=== PATIENT | female | born 1980 | race American Indian/Alaskan Native ===

== ENCOUNTER 2019-09-30 17:36 | Emergency (ER) | payer OTHER ==
[2019-09-30] MEDS ORDERED: ASPIRIN 325 MG TAB PO ONE (17:58)
--- NOTE | 2019-09-30 18:35 | XRay Report ---
CHEST 2 VIEWS INDICATION / CLINICAL INFORMATION: Chest Pain. COMPARISON: 09/22/2019. FINDINGS: SUPPORT DEVICES: None. HEART / MEDIASTINUM: No significant abnormality. LUNGS / PLEURA: No significant pulmonary or pleural abnormality. No pneumothorax. ADDITIONAL FINDINGS: No significant additional findings. IMPRESSION: 1. No acute findings. Signer Name: David Merida MD Signed: 09/30/2019 6:31 PM Workstation Name: [id number]
[2019-09-30 19:25] LABS: Basophils # (Auto) 0.1 K/mm3 (0.0-0.1); Basophils % (Auto) 0.6 % (0.0-1.8); Eosinophils # (Auto) 0.1 K/mm3 (0.0-0.4); Eosinophils % (Auto) 1.2 % (0.0-4.3); Hematocrit 43.6 % (30.3-42.9); Hemoglobin 14.7 gm/dl (10.1-14.3); Lymphocytes # (Auto) 3.5 K/mm3 (1.2-5.4); Lymphocytes % (Auto) 43.4 % (13.4-35.0); Mean Corpuscular HGB Conc 34 % (30-34); Mean Corpuscular Volume 90 fl (79-97); Monocytes # (Auto) 0.8 K/mm3 (0.0-0.8); Monocytes % (Auto) 9.5 % (0.0-7.3); Platelet Count 277 K/mm3 (140-440); Red Blood Count 4.83 M/mm3 (3.65-5.03); Red Cell Distribution Width 14.2 % (13.2-15.2)
[2019-09-30 19:47] LABS: BUN/Creatinine Ratio 16; Blood Urea Nitrogen 21 mg/dL (7-17); Calcium 9.8 mg/dL (8.4-10.2); Hemolysis Index 39
--- NOTE | 2019-09-30 20:09 | Event Note ---
ED Screening Note Date of service: 09/30/19 Time: 20:00 ED Screening Note: 38 y/o -[place] Citizen female presents emergency room for acute chest pressure in the left side neck pain more like pressure. Patient was seen here 09/22/2019 elevated blood pressure. She had followed up with her primary care provider and was placed on blood pressure medication. This initial assessment/diagnostic orders/clinical plan/treatment(s) is/are subject to change based on patients health status, clinical progression and re- assessment by fellow clinical providers in the ED. Further treatment and workup at subsequent clinical providers discretion. Patient/guardian urged not to elope from the ED as their condition may be serious if not clinically assessed and managed. Initial orders include:
[2019-10-01 03:37] VITALS: BP 152/105
--- NOTE | 2019-10-01 07:13 | Emergency Department Report ---
ED Chest Pain HPI - General Chief Complaint: Chest Pain Stated Complaint: BP HIGH PUI?: No Time Seen by Provider: 10/01/19 07:03 Source: patient Mode of arrival: Ambulatory Limitations: No Limitations - History of Present Illness Initial Comments: This is a 38-year-old female who was recently diagnosed with hypertension in the emergency department 9 days ago who presents with left chest and neck pain. She also is concerned that her blood pressure has been elevated ranging from 170 to 180 mmHg systolic blood pressure. She has had intermittent left chest pressure and left neck pain. No previous history of cardiac disease. She denies leg pain. Denies travel. Denies use of oral contraception. She was informed by provider in triage that her kidney function has changed since starting on the medication. She followed up with new PCP who changed initial blood pressure medicine and hydrochlorothiazide to olmesartan hydrochlorothiazide. The chest pressure in the left chest and neck last several seconds to minutes. Not associated with exertion. MD Complaint: chest pain -: Sudden Onset: during rest Pain Location: left chest Pain Radiation: neck Severity scale (0 -10): 0 Quality: pressure Consistency: intermittent, now resolved Improves With: nothing Worsens With: nothing Context: new medications (Recently diagnosed with hypertension in the emergency department.) - Related Data Previous Rx's Medication Instructions Recorded Last Taken Type Ibuprofen [Motrin] 800 mg PO TID PRN #25 tablet 03/02/13 Unknown Rx cefUROXime [Ceftin] 250 mg PO Q12H #20 tablet 03/02/13 Unknown Rx hydroCHLOROthiazide [HCTZ] 25 mg PO QDAY #30 tablet 09/22/19 Unknown Rx amLODIPine 5 mg PO DAILY #30 tab 10/01/19 Unknown Rx Allergies Allergy/AdvReac Type Severity Reaction Status Date / Time No Known Allergies Allergy Verified 03/01/13 23:34 Heart Score - HEART Score History: Slightly suspicious EKG: Normal Age: < 45 Risk factors: 1-2 risk factors Troponin: < normal limit HEART Score: 1 ED Review of Systems ROS: Stated complaint: BP HIGH Other details as noted in HPI Comment: All other systems reviewed and negative Constitutional: denies: fever, malaise ENT: denies: ear pain Respiratory: denies: cough, shortness of breath Cardiovascular: chest pain ED Past Medical Hx - Past Medical History Previous Medical History?: Yes Hx Hypertension: Yes (New diagnosis September 2019) - Surgical History Past Surgical History?: Yes Additional Surgical History: - Social History Smoking Status: Never Smoker Substance Use Type: Alcohol - Medications Home Medications: Home Medications Medication Instructions Recorded Confirmed Last Taken Type Ibuprofen [Motrin] 800 mg PO TID PRN #25 tablet 03/02/13 Unknown Rx cefUROXime [Ceftin] 250 mg PO Q12H #20 tablet 03/02/13 Unknown Rx hydroCHLOROthiazide [HCTZ] 25 mg PO QDAY #30 tablet 09/22/19 Unknown Rx amLODIPine 5 mg PO DAILY #30 tab 10/01/19 Unknown Rx ED Physical Exam - General Limitations: No Limitations General appearance: alert, in no apparent distress - Head Head exam: Present: atraumatic, normocephalic - Eye Eye exam: Present: normal appearance - ENT ENT exam: Present: mucous membranes moist - Neck Neck exam: Present: normal inspection, full ROM - Respiratory Respiratory exam: Present: normal lung sounds bilaterally. Absent: respiratory distress, wheezes, rales, rhonchi - Cardiovascular Cardiovascular Exam: Present: regular rate, normal rhythm, normal heart sounds. Absent: systolic murmur, diastolic murmur, rubs, gallop - GI/Abdominal GI/Abdominal exam: Present: soft, normal bowel sounds. Absent: distended, tenderness, guarding, rebound - Extremities Exam Extremities exam: Present: normal inspection - Neurological Exam Neurological exam: Present: alert, oriented X3 - Psychiatric Psychiatric exam: Present: normal affect, normal mood - Skin Skin exam: Present: warm, dry, intact, normal color. Absent: rash ED Course Vital Signs 09/30/19 10/01/19 17:58 03:35 Temperature 97.9 F Pulse Rate 119 H 78 Respiratory 18 16 Rate Blood Pressure 152/105 Blood Pressure 170/101 [Right] O2 Sat by Pulse 100 100 Oximetry ED Medical Decision Making - Lab Data Result diagrams: 09/30/19 18:26 09/30/19 18:26 Vital Signs - 8 hr 10/01/19 03:35 Pulse Rate 78 Respiratory 16 Rate Blood Pressure 152/105 O2 Sat by Pulse 100 Oximetry Vital Signs - 24 hr 09/30/19 10/01/19 17:58 03:35 Temperature 97.9 F Pulse Rate 119 H 78 Respiratory 18 16 Rate Blood Pressure 152/105 Blood Pressure 170/101 [Right] O2 Sat by Pulse 100 100 Oximetry Laboratory Results - last 72 hr 09/30/19 09/30/19 09/30/19 18:26 18:26 21:32 WBC 8.1 RBC 4.83 Hgb 14.7 H Hct 43.6 H MCV 90 MCH 31 MCHC 34 RDW 14.2 Plt Count 277 Lymph % (Auto) 43.4 H Hart % (Auto) 9.5 H Eos % (Auto) 1.2 Baso % (Auto) 0.6 Lymph # 3.5 Hart # 0.8 Eos # 0.1 Baso # 0.1 Seg Neutrophils % 45.3 Seg Neutrophils # 3.7 Sodium 136 L Potassium 3.5 L Chloride 97.4 L Carbon Dioxide 23 Anion Gap 19 BUN 21 H Creatinine 1.3 H Estimated GFR 55 BUN/Creatinine Ratio 16 Glucose 102 H Calcium 9.8 Troponin T < 0.010 < 0.010 10/01/19 00:04 WBC RBC Hgb Hct MCV MCH MCHC RDW Plt Count Lymph % (Auto) Hart % (Auto) Eos % (Auto) Baso % (Auto) Lymph # Hart # Eos # Baso # Seg Neutrophils % Seg Neutrophils # Sodium Potassium Chloride Carbon Dioxide Anion Gap BUN Creatinine Estimated GFR BUN/Creatinine Ratio Glucose Calcium Troponin T < 0.010 - EKG Data EKG shows normal: sinus rhythm, axis, intervals, QRS complexes, ST-T waves Rate: normal - EKG Data Interpretation: normal EKG - Radiology Data Radiology results: report reviewed Chest radiograph: No acute findings - Medical Decision Making 1. Hypertensive urgency: Due to new medications including FRIEDA inhibitor and Dy azide diuretic, kidney function has been slightly affected GFR decreased. I have DC'd the new medication on losartan hydrochlorothiazide. I have prescribed amlodipine. 2. Chest pain: Heart score 1. I recommended outpatient follow-up with inspector elevators for outpatient cardiac stress test. I have faxed referral to the [facility] for cardiology appt Troponin x3-. Critical care attestation.: If time is entered above; I have spent that time in minutes in the direct care of this critically ill patient, excluding procedure time. ED Disposition Clinical Impression: Hypertension, Chest pain Disposition: DC-01 TO HOME OR SELFCARE Is pt being admited?: No Does the pt Need Aspirin: No Condition: Stable Instructions: Hypertension (ED), Chest Pain (ED) Prescriptions: amLODIPine 5 mg PO DAILY #30 tab Referrals: ALONDRA LEVINE MD [Primary Care Provider] - 3-5 Days ANGE RAMOS MD [Staff Physician] - 3-5 Days Forms: Work/School Release Form(ED)
== END 2019-10-01 07:47 | disposition home or self-care (01) ==
LOC: ED 17:36
DX: R07.89 Other chest pain (principal); I10 Essential (primary) hypertension; Z98.890 Other specified postprocedural states; Z79.1 Long term (current) use of non-steroidal anti-inflammatories (NSAID); Z79.899 Other long term (current) drug therapy
CPT/HCPCS: 36415; 71046; 80048; 84484; 85025; 93005